=== PATIENT | female | born 1975 | race Caucasian/White ===

== ENCOUNTER 2016-09-19 13:20 | Emergency (ER) | payer BC ==
[~2016-09-19] VITALS: Ht 170.2 cm; Wt 143.1 kg
[~2016-09-19 13:20] MED LIST: ADVIL200 MG PO; DAILY VITAMIN1 EAC8 PO; FLEXERIL10 MG PO; FLONASE16 G1 BOTH NARES; IRON325 M1 PO; MOTRIN800 MG PO; PERCOCET 5/31 TABLET PO; PREDNISONE20 MG PO; TESSALON PERLE100 MG PO; VITAMIN B12 100MCG PO; VITAMIN D-32000 UNI1 PO; VITAMIN D33000 UNIT PO
[2016-09-19 14:33] LABS: HEMATOCRIT 36.6 % (36.0-46.0); MCH 29.8 PG (29.0-34.0); MCHC 33.6 G/DL (30.0-36.0); MCV 88.6 FL (83-99); MEAN PLAT.VOLUME 9.2 uM^3 (9.5-12.4); PLATELET COUNT 261 K/uL (156-360); RBC DIS.WIDTH-CV 12.8 % (11.8-14.6); RBC DIS.WIDTH-SD 41.4 % (39-53); RED BLOOD COUNT 4.13 M/uL (3.80-5.20); WHITE BLOOD COUNT 9.3 K/uL (4.1-10.2)
[2016-09-19 14:41] LABS: CHLORIDE 105 mEq/L (99-109); POTASSIUM 3.7 mEq/L (3.7-5.4); SODIUM 138 mEq/L (136-147)
[2016-09-19 14:43] LABS: GLUCOSE 95 mg/dL (70-99)
[2016-09-19 14:45] LABS: ANION GAP 8 MEQ/L (2-14)
[2016-09-19 14:47] LABS: GFR ESTIMATE (CALCULATED) > 59 mL/min/
[2016-09-19 14:48] LABS: UREA NITROGEN (BUN) 16 mg/dL (9-23)
[2016-09-19 14:55] LABS: TROP-I INTERPRETATION NEGATIVE; TROPONIN-I < 0.01 ng/mL (0.0-0.30)
[2016-09-19 17:48] LABS: TROP-I INTERPRETATION NEGATIVE; TROPONIN-I < 0.01 ng/mL (0.0-0.30)
[2016-09-19] MEDS ORDERED: CARAFATE100 MG/ML PO (17:56)
[2016-09-19 18:11] VITALS: BP 136/90
== END 2016-09-19 18:11 | disposition home or self-care (01) ==
LOC: EME 13:20
PROVIDERS: Emergency Medicine
DX: R07.9 Chest pain, unspecified (principal); R73.03 Prediabetes; Z90.49 Acquired absence of other specified parts of digestive tract; E66.9 Obesity, unspecified; Z68.42 Body mass index [BMI] 45.0-49.9, adult
CPT/HCPCS: 71020; 80048; 84484; 85027; 93005; 99281; 99284

== ENCOUNTER → 2017-07-07 | Outpatient (CLI) | payer BC ==
[~2017-07-07] VITALS: Ht 172.7 cm; Wt 142.8 kg
[~2017-07-07] MED LIST changes: +CARAFATE100 MG/ML PO; +CYANOCOBALAM1000 MCG PO; +ZYRTEC10 M2 PO
== END | disposition home or self-care (01) ==
LOC: AMB 10:53
DX: Z12.11 Encounter for screening for malignant neoplasm of colon (principal); Z80.0 Family history of malignant neoplasm of digestive organs; K57.30 Diverticulosis of large intestine without perforation or abscess without bleeding; D12.3 Benign neoplasm of transverse colon; D12.4 Benign neoplasm of descending colon; K64.8 Other hemorrhoids; R10.11 Right upper quadrant pain; Z88.1 Allergy status to other antibiotic agents
CPT/HCPCS: 88305